=== PATIENT | male | born 1950 | race Caucasian/White ===

== ENCOUNTER 2020-11-05 08:42 | Emergency (ER) | payer MEDICARE, OTHER ==
[~2020-11-05] VITALS: Ht 175.3 cm; Wt 82.5 kg
[2020-11-05] MEDS ORDERED: ATORVASTATIN CA20 MG PO (09:15)
[2020-11-05] MEDS ORDERED: ASPI81CH PO (09:15)
== END 2020-11-05 10:00 | disposition home or self-care (01) ==
LOC: ER 08:42
DX: R20.2 Paresthesia of skin (principal); M19.039 Primary osteoarthritis, unspecified wrist; F17.220 Nicotine dependence, chewing tobacco, uncomplicated; Z79.82 Long term (current) use of aspirin; Z79.899 Other long term (current) drug therapy
CPT/HCPCS: 99283

== ENCOUNTER 2021-06-02 17:04 | Emergency (ER) | payer MEDICARE, OTHER ==
[~2021-06-02] VITALS: Ht 177.8 cm; Wt 80.7 kg
[~2021-06-02 17:04] MED LIST: ASPI81CH PO; ATORVASTATIN CA20 MG PO
[2021-06-02 17:52] LABS: BASOPHILS ABSOLUTE AUTO 0.04 K/mm3 (0.00-0.23); BASOPHILS PERCENT AUTO 1 % (0-2); EOSINOPHILS PERCENT AUTO 4 % (0-6); Hematocrit 43.1 % (37.0-53.0); Hemoglobin 14.1 g/dL (13.5-17.5); IMMATURE GRAN ABSOLUTE AUTO 0.01 K/mm3 (0.00-0.10); IMMATURE GRAN PERCENT AUTO 0 % (0-1); LYMPHOCYTES ABSOLUTE AUTO 1.02 K/mm3 (0.84-5.20); LYMPHOCYTES PERCENT AUTO 20 % (21-46); MONOCYTES ABSOLUTE AUTO 0.33 K/mm3 (0.16-1.47); MONOCYTES PERCENT AUTO 6 % (4-13); Mean Corpuscular HGB 29.6 pg (26.0-34.0); Mean Corpuscular HGB Conc 32.7 g/dL (31.5-36.5); Mean Corpuscular Volume 91 fL (80-100); Mean Platelet Volume 9.6 fL (9.1-12.4); NEUTROPHILS ABSOLUTE AUTO 3.63 K/mm3 (1.96-9.15); NEUTROPHILS PERCENT AUTO 69 % (41-73); Platelet Count 218 K/mm3 (150-400); RDW Coefficient Variation 13.4 % (11.7-14.2); Red Blood Cell Count 4.76 M/mm3 (4.30-5.90); White Blood Cell Count 5.23 K/mm3 (4.00-11.30)
[2021-06-02 18:30] LABS: Alanine Aminotransfer (ALT/SGP 22 U/L (12-78); Albumin, Blood 3.8 g/dL (3.4-5.0); Albumin/Globulin Ratio 1.2 (0.8-1.8); Alk Phos 86 U/L (50-136); Anion Gap 6 mmol/L (6-16); Aspartate Aminotrans (AST/SGOT 21 U/L (12-37); Bilirubin, Total 0.5 mg/dL (0.1-1.0); Blood Urea Nitrogen 16 mg/dL (8-24); Bun/Creatinine Ratio 14.4 (12.0-20.0); CO2, Blood 26 mmol/L (21-32); Calcium, Blood 8.7 mg/dL (8.5-10.1); Chloride, Blood 107 mmol/L (98-108); Creatinine, Blood 1.11 mg/dL (0.60-1.20); Globulin, Blood 3.1 g/dL (2.2-4.0); Glomerular Filtration Rate >60 (60-); Glucose, Blood 106 mg/dL (70-99); Potassium, Blood 3.7 mmol/L (3.5-5.5); Sodium, Blood 139 mmol/L (136-145); Total Protein, Blood 6.9 g/dL (6.4-8.2); Troponin I <0.015 ng/mL (0.000-0.040)
== END 2021-06-02 22:17 | disposition home or self-care (01) ==
LOC: ER 17:04
PROVIDERS: Physician Assistant
DX: I10 Essential (primary) hypertension (principal); E78.00 Pure hypercholesterolemia, unspecified; F17.220 Nicotine dependence, chewing tobacco, uncomplicated; Z79.899 Other long term (current) drug therapy
CPT/HCPCS: 36415; 71046; 80053; 84484; 85025; 93005; 93010; 99284-25

== ENCOUNTER 2024-03-05 10:28 | Inpatient (IN) | payer MEDICARE, OTHER ==
[2024-03-05] VITALS (13 sets, daily range): BP systolic 111–168; BP diastolic 63–88
[~2024-03-05] VITALS: Ht 177.8 cm; Wt 81.9 kg
[2024-03-05] MEDS ORDERED: FentaNYL Citrate 50 MCG/ML 2 ML Injection IV ONE ×2 (11:10→12:00)
[2024-03-05] MEDS ORDERED: NS 1,000 ML IV SCH ×2 (11:10→14:30)
[2024-03-05] MEDS ORDERED: Propofol 10mg/ml 20 ml Vial (Procedural) IV SCH (11:15)
[2024-03-05] MEDS ORDERED: HYDROmorphone HCl/Pf 1MG SYR IV ONE (13:00)
[2024-03-05] MEDS ORDERED: HYDROcodone 10-APAP 325 TAB PO PRN (14:30)
[2024-03-05] MEDS ORDERED: Ondansetron HCl 2 MG / ML 2ML Vial IV PRN (14:30)
[2024-03-05] MEDS ORDERED: FLU VACC TS2024-25(6MOS UP)/PF 45 MCG/0.5 ML SYRINGE IM ONE (14:30)
[2024-03-05] MEDS ORDERED: HYDROmorphone HCl 2 MG Tab PO PRN (14:30)
[2024-03-05] MEDS ORDERED: DiphenhydrAMINE HCL 25 MG Cap PO PRN (14:35)
[2024-03-05] MEDS ORDERED: Lidocaine 2%-Epineph 1:200000 20 ML SDV ONE (14:49)
[2024-03-05] MEDS ORDERED: Lactated Ringer's 1,000 ML IV SCH (15:10)
[2024-03-05] MEDS ORDERED: FentaNYL Citrate 50 MCG/ML 2 ML Injection ONE (15:13)
[2024-03-05] MEDS ORDERED: propofoL 20 ML IV ONE (15:13)
[2024-03-05] MEDS ORDERED: FentaNYL Citrate 50 MCG/ML 2 ML Injection IV SCH (15:15)
[2024-03-05] MEDS ORDERED: Midazolam HCl 1MG / ML 2ML Vial IV SCH (15:15)
[2024-03-05] MEDS ORDERED: Dexamethasone Sod Phos 10 MG/ML 1ML VIAL ONE (15:20)
[2024-03-05] MEDS ORDERED: Rocuronium Bromide 10 MG/ML 5ML Injection IV ONE ×2 (15:20→16:52)
[2024-03-05] MEDS ORDERED: CeFAZolin Sodium 2,000 MG in NS 100 ML IV SCH (15:30)
[2024-03-05] MEDS ORDERED: Tranexamic Acid 100 ML IV SCH (15:30)
--- NOTE | 2024-03-05 15:53 | NUR ---
PT TRIES MULTIPLE DIFFERENT WAYS TO REMOVE L HAND 4TH FINGER RING. RING WILL NOT COME OUT. PER DR. HARMAN, SHE WILL REMOVE RING ONCE BACK IN OR.
[2024-03-05] MEDS ORDERED: Phenylephrine HCl 100 MCG/ML-NS 10MLSYR (1MG/10ML) ONE (16:25)
[2024-03-05] MEDS ORDERED: ePHEDrine Sulfate 50 MG/ML 1ML Injection ONE (16:30)
[2024-03-05] MEDS ORDERED: Ondansetron HCl 2 MG / ML 2ML Vial ONE (16:58)
[2024-03-05] MEDS ORDERED: Ketorolac Tromethamine 30mg Vial ONE (16:58)
[2024-03-05] MEDS ORDERED: Sugammadex Sodium 200 MG/2ML SDV (100 MG/ML) ONE (16:59)
[2024-03-05] MEDS ORDERED: FentaNYL Citrate 50 MCG/ML 2 ML Injection IV PRN ×3 (17:00→17:05)
[2024-03-05] MEDS ORDERED: HYDROmorphone HCl/Pf 1MG SYR IV PRN (17:05)
[2024-03-05] MEDS ORDERED: Metoclopramide HCl 5MG / ML 2ML Vial IV PRN (17:05)
[2024-03-05] MEDS ORDERED: HYDROmorphone HCl/Pf 1MG SYR ONE (18:26)
[2024-03-05] MEDS ORDERED: EpiNEPhrine 1 MG/1 ML 1ML Vial ONE (18:46)
[2024-03-05] MEDS ORDERED: Bupivacaine 0.5% HCl 5 MG/ML 30MLVIAL ONE (18:47)
--- NOTE | 2024-03-05 18:54 | NUR ---
03/05/241853 Tatiana Michel MIXED 0.5% BUPIVACAINE 30ML WITH EPI TO CREATE A SOLUTION OF 1:200,000 AND WAS ADMINISTERED TO THE STERILE FIELD. INJECTED 20ML OF THE ABOVE SOLUTION AT 1852 INTO THE LEFT SHOULDER.
[2024-03-05 20:19] LABS: BASOPHILS ABSOLUTE AUTO 0.01 K/mm3 (0.00-0.23); BASOPHILS PERCENT AUTO 0 % (0-2); EOSINOPHILS PERCENT AUTO 0 % (0-6); Hematocrit 36.3 % (37.0-53.0); Hemoglobin 11.7 g/dL (13.5-17.5); IMMATURE GRAN ABSOLUTE AUTO 0.03 K/mm3 (0.00-0.10); IMMATURE GRAN PERCENT AUTO 0 % (0-1); LYMPHOCYTES ABSOLUTE AUTO 0.29 K/mm3 (0.84-5.20); LYMPHOCYTES PERCENT AUTO 4 % (21-46); MONOCYTES ABSOLUTE AUTO 0.15 K/mm3 (0.16-1.47); MONOCYTES PERCENT AUTO 2 % (4-13); Mean Corpuscular HGB Conc 32.2 g/dL (31.5-36.5); Mean Corpuscular Volume 90 fL (80-100); Mean Platelet Volume 9.3 fL (9.1-12.4); NEUTROPHILS ABSOLUTE AUTO 7.75 K/mm3 (1.96-9.15); NEUTROPHILS PERCENT AUTO 94 % (41-73); Platelet Count 256 K/mm3 (150-400); RDW Coefficient Variation 14.6 % (11.7-14.2); RDW Standard Deviation 49.1 fL (35.1-46.3); Red Blood Cell Count 4.03 M/mm3 (4.30-5.90); White Blood Cell Count 8.23 K/mm3 (4.00-11.30)
--- NOTE | 2024-03-05 20:20 | NUR ---
TRANSFER FROM PACU TO SURG PT ARRIVED BY CAREY FROM PACU TO ROOM 224 AT 2000 R/T LEFT POST-OP ORIF. PT PRESENTED TO UNIT A/OX4, DENIES PAIN. DRESSING TO INCISION CDI. PAS IN PLACE. IV TO RIGHT FOREARM INFUSING. PT CURRENTLY TOLERATING PO INTAKE. VITALS STABLE. RESPIRATIONS UNLABORED. ORIENTATION TO ROOM, FALL PRECAUTIONS, CALL LIGHT GIVEN. PT VERBALIZED UNDERSTANDING.
[2024-03-05 20:35] LABS: International Normalized Ratio 0.96; Prothrombin Time Results 10.3 Sec (9.7-11.5)
[2024-03-05 20:38] LABS: Albumin, Blood 3.2 g/dL (3.4-5.0); Albumin/Globulin Ratio 1.1 (0.8-1.8); Bilirubin, Total 0.4 mg/dL (0.1-1.0); Bun/Creatinine Ratio 12.5 (12.0-20.0); Calcium, Blood 8.2 mg/dL (8.5-10.1); Creatinine, Blood 0.88 mg/dL (0.60-1.20); Potassium, Blood 4.1 mmol/L (3.5-5.5); Total Protein, Blood 6.2 g/dL (6.4-8.2)
[2024-03-05] MEDS ORDERED: Docusate Sodium 100 MG Cap PO SCH (21:00)
[2024-03-06 04:06] LABS: BASOPHILS PERCENT AUTO 0 % (0-2); EOSINOPHILS PERCENT AUTO 0 % (0-6); Hematocrit 32.7 % (37.0-53.0); Hemoglobin 10.4 g/dL (13.5-17.5); IMMATURE GRAN ABSOLUTE AUTO 0.02 K/mm3 (0.00-0.10); IMMATURE GRAN PERCENT AUTO 0 % (0-1); LYMPHOCYTES ABSOLUTE AUTO 0.49 K/mm3 (0.84-5.20); LYMPHOCYTES PERCENT AUTO 6 % (21-46); MONOCYTES ABSOLUTE AUTO 0.49 K/mm3 (0.16-1.47); MONOCYTES PERCENT AUTO 6 % (4-13); Mean Corpuscular HGB 28.4 pg (26.0-34.0); Mean Corpuscular HGB Conc 31.8 g/dL (31.5-36.5); Mean Corpuscular Volume 89 fL (80-100); Mean Platelet Volume 9.3 fL (9.1-12.4); NEUTROPHILS ABSOLUTE AUTO 6.93 K/mm3 (1.96-9.15); NEUTROPHILS PERCENT AUTO 87 % (41-73); Platelet Count 250 K/mm3 (150-400); RDW Coefficient Variation 14.8 % (11.7-14.2); RDW Standard Deviation 48.8 fL (35.1-46.3); Red Blood Cell Count 3.66 M/mm3 (4.30-5.90); White Blood Cell Count 7.93 K/mm3 (4.00-11.30)
[2024-03-06 04:23] LABS: Bun/Creatinine Ratio 17.8 (12.0-20.0); Calcium, Blood 8.3 mg/dL (8.5-10.1); Creatinine, Blood 1.07 mg/dL (0.60-1.20); Potassium, Blood 4.6 mmol/L (3.5-5.5)
--- NOTE | 2024-03-06 04:44 | NUR ---
SHIFT SUMMARY POD 1 S/P LEFT SHOULDER SURGERY. PAIN MANAGED PER EMAR AND ICE THERAPY. AMBULATING IN ROOM. TOLERATING REGULAR DIET. VOIDING IND WITH URINAL. DRESSING TO SHOULDER CDI, ICE PACK AND IMMOBILIZER IN PLACE. WILL GIVE REPORT TO MONTRELL TAPIA.
[2024-03-06 04:54] VITALS: BP 124/74
--- NOTE | 2024-03-06 06:35 | NUR ---
PT IS ABLE TO MAKE A FIST AND MOVE ALL FINGERS BUT REPORTS SOME NUMBESS IN L MIDDLE FINGERS. CAP REFILL 2 SECONDS, FINGERS WARM TO TOUCH. PT REPORTS INTERMITTENT NUMBNESS SINCE ACCIDENT THAT HAS IMPROVED SINCE SURGERY. WILL REPORT TO ONCOMING RN.
[2024-03-06 07:23] VITALS: BP 112/70
[2024-03-06] MEDS ORDERED: DOCU100 PO (10:53)
[2024-03-06] MEDS ORDERED: HYDACE10B PO (10:54)
--- NOTE | 2024-03-06 12:12 | NUR ---
DISCHARGE POD 1 L SHOULDER ORIF PT DENIES PAIN DURING SHIFT. AMBULATING INDEPENDENTLY IN HALLWAYS. ABLE TO DRESS SELF. REPORTS FEELING CONFIDENT CARING FOR HIMSELF AT HOME AND STATES HE HAS NEIGHBORS WILLING TO HELP. PRINEO DRESSING REMAINS CDI. EXTRA AQUACELS SENT WITH PATIENT IF NEEDED. REPORTS NUMBNESS IMPROVING.
== END 2024-03-06 11:50 | disposition home or self-care (01) | DRG 563 ==
LOC: ER 10:28 → SURS 14:27
PROVIDERS: Orthopaedic Surgery; Student in an Organized Health Care Education/Training Program; ADMIT Family Medicine
PROC: 0PSDXZZ Reposition Left Humeral Head, External Approach (ICD-10-PCS; principal; 2024-03-05 16:00)
DX: S42.202A Unspecified fracture of upper end of left humerus, initial encounter for closed fracture (principal); E78.00 Pure hypercholesterolemia, unspecified; Z98.890 Other specified postprocedural states; Z28.21 Immunization not carried out because of patient refusal; Z79.82 Long term (current) use of aspirin; W11.XXXA Fall on and from ladder, initial encounter; Y92.007 Garden or yard of unspecified non-institutional (private) residence as the place of occurrence of the external cause
CPT/HCPCS: 23650; 36415; 73030; 73200; 80048; 80053; 85025; 85610; 85730; 96374-59; 96375-59; 96376-59; 99152; 99153; 99285-25; A9270; C1713; J0171; J0690; J1100; J1170; J1885; J2250; J2371; J2405; J2704; J3010; J7030; J7120

== ENCOUNTER 2024-03-11 12:33 | Emergency (ER) | payer MEDICARE, OTHER ==
[~2024-03-11] VITALS: Ht 177.8 cm; Wt 81.7 kg
[~2024-03-11 12:33] MED LIST changes: +DOCU100 PO; +HYDACE10B PO
[2024-03-11 14:00] VITALS: BP 127/78
== END 2024-03-11 14:47 | disposition home or self-care (01) ==
LOC: ER 12:33
DX: R22.32 Localized swelling, mass and lump, left upper limb (principal); E78.00 Pure hypercholesterolemia, unspecified; F17.220 Nicotine dependence, chewing tobacco, uncomplicated; Z79.899 Other long term (current) drug therapy
CPT/HCPCS: 93971; 99283-25

== ENCOUNTER 2024-05-30 07:50 | Day surgery (SDC) | payer MEDICARE, OTHER ==
[~2024-05-30] VITALS: Ht 177.8 cm; Wt 84.1 kg
[~2024-05-30 07:50] MED LIST changes: +Lactated Ringer's 1,000 ML IV ONE; +Ropivacaine 0.5% HCL/PF 5 MG/ML 30ML Vial ONE
[2024-05-30] MEDS ORDERED: CeFAZolin Sodium 2,000 MG VIAL ONE (08:01)
[2024-05-30] MEDS ORDERED: NS 50 ML IV ONE (08:01)
[2024-05-30] MEDS ORDERED: Lactated Ringer's 1,000 ML IV ONE (08:31)
[2024-05-30] MEDS ORDERED: propofoL 20 ML IV ONE (08:33)
[2024-05-30] MEDS ORDERED: Ondansetron HCl 2 MG / ML 2ML Vial ONE (09:28)
[2024-05-30] MEDS ORDERED: FentaNYL Citrate 50 MCG/ML 2 ML Injection ONE (10:13)
[2024-05-30] MEDS ORDERED: HYDROmorphone HCl/Pf 1MG SYR ONE (10:32)
[2024-05-30] MEDS ORDERED: Dexamethasone Sod Phos 10 MG/ML 1ML VIAL ONE (10:32)
[2024-05-30 11:29] VITALS: BP 140/91
== END 2024-05-30 12:23 | disposition home or self-care (01) ==
LOC: ORSCSDS 07:50
PROVIDERS: Orthopaedic Surgery
PROC: 0XP70YZ Removal of Other Device from Left Upper Extremity, Open Approach (ICD-10-PCS; principal; 2024-05-30 09:30)
DX: T84.9XXA Unspecified complication of internal orthopedic prosthetic device, implant and graft, initial encounter (principal)
CPT/HCPCS: J0690; J1100; J1171; J2405; J2704; J2795; J3010; J7120

== ENCOUNTER → 2024-12-25 | Outpatient (CLI) | payer MEDICARE, OTHER ==
[~2024-12-25] MED LIST changes: -Lactated Ringer's 1,000 ML IV ONE; -Ropivacaine 0.5% HCL/PF 5 MG/ML 30ML Vial ONE
== END | disposition home or self-care (01) ==
LOC: LAB SHORT 07:01 → LAB 07:01
PROVIDERS: Physician Assistant
DX: G62.89 Other specified polyneuropathies (principal)
CPT/HCPCS: 86335